=== PATIENT | female | born 1940 | race Caucasian/White ===

== ENCOUNTER 2021-03-07 13:23 | Emergency (ER) | payer MEDICARE, OTHER ==
--- NOTE | 2021-03-07 14:08 | EDM.PDOC ---
ED HPI GENERAL MEDICAL PROBLEM - General Chief Complaint: Lower Extremity Injury/Pain Stated Complaint: left knee pain, fall Time Seen by Provider: 03/07/21 13:49 Source of Information: Reports: Patient History Limitations: Reports: No Limitations - History of Present Illness INITIAL COMMENTS - FREE TEXT/NARRATIVE: Patient tripped at home. Tried to catch herself on arm of chair. Fell onto left knee and also hit her nose on the arm of the chair. Did have bleeding from the nose but that stopped prior to arrival to ER. Unable to bear much weight on left leg due to knee pain. Uses cane/walker at home for ambulation. Denies any acute change/new pain anywhere else. No LOC/new neck pain. Has ongoing discomfort in right knee and says they are planning to do an injection into that joint for treatment. Treatments SKI BASE TRIMMER: Reports: Other (see below) Other Treatments SKI BASE TRIMMER: ibuprofen 400 mg at 0800, voltatran gel left knee Pain Score (Numeric/FACES): 10 - Related Data Allergies Allergy/AdvReac Type Severity Reaction Status Date / Time Penicillins Allergy Cannot Verified 03/07/21 13:26 Remember Home Meds: Home Meds Alendronate Sodium 70 mg PO WEEKLY 10/26/20 [History] Calcium Carbonate [Calcium] 500 mg PO BID 10/26/20 [History] Diclofenac Sodium 75 mg PO Q12HR 10/26/20 [History] Levothyroxine 125 mcg PO DAILY 10/26/20 [History] Lutein/Minerals/Vit A,C & E [I-Renate] 2 tab PO DAILY 10/26/20 [History] Multivitamin 1 tab PO DAILY 10/26/20 [History] Omeprazole 20 mg PO DAILY 10/26/20 [History] lisinopriL [Lisinopril] 10 mg PO DAILY 10/26/20 [History] miSOPROStoL [Misoprostol] 100 mg PO DAILY 10/26/20 [History] oxyCODONE HCl/Acetaminophen [Oxycodone-Acetaminophen 5-325] 1 each PO Q6HR PRN #15 tablet 03/07/21 [Rx] Review of Systems - Review of Systems Review Of Systems: See Below Constitutional: Reports: No Symptoms Eyes: Denies: Pain, Vision Change Ears: Reports: No Symptoms Nose: Reports: Epistaxis Mouth/Throat: Reports: No Symptoms Respiratory: Reports: No Symptoms Cardiovascular: Reports: No Symptoms. Denies: Chest Pain GI/Abdominal: Reports: No Symptoms Musculoskeletal: Reports: Joint Swelling, Other (No acute change in chronic issues other then left knee pain) Skin: Denies: Wound Neurological: Reports: No Symptoms Psychiatric: Reports: No Symptoms ED EXAM, GENERAL - Physical Exam Exam: See Below Exam Limited By: No Limitations General Appearance: Alert, WD/WN, No Apparent Distress Eye Exam: Bilateral Eye: EOMI Ears: Hearing Grossly Normal Nose: Other (Bleeding stopped prior to arrival. Dried blood inside nares. ). No: Nasal Tenderness, Nasal Deformity, Nasal Swelling, Nasal Drainage Throat/Mouth: Normal Lips, Normal Voice, No Airway Compromise Head: Atraumatic, Normocephalic Neck: Normal Inspection, Supple, Non-Tender, Full Range of Motion Respiratory/Chest: No Respiratory Distress, Lungs Clear, Normal Breath Sounds, No Accessory Muscle Use, Chest Non-Tender Cardiovascular: Regular Rate, Rhythm, No Murmur GI/Abdominal: Soft, Non-Tender (Female) Exam: Deferred Rectal (Female) Exam: Deferred Back Exam: No: CVA Tenderness (L), CVA Tenderness (R), Muscle Spasm Extremities: Other (Tenderness/swelling left knee area. Color normal distal to injury. ) Neurological: Alert, Oriented Psychiatric: Normal Affect, Normal Mood Skin Exam: Warm, Dry, Intact Course - Vital Signs Last Recorded V/S: Last Vital Signs Temp 37.1 C 03/07/21 13:26 Pulse 79 03/07/21 13:26 Resp 16 03/07/21 13:26 BP 163/79 H 03/07/21 13:26 Pulse Ox 95 03/07/21 13:26 - Orders/Labs/Meds Orders: Active Orders 24 hr Category Date Time Status Knee 1V or 2V Lt [CR] Stat Exams 03/07/21 13:49 Taken Labs: Laboratory Tests 03/07/21 03/07/21 03/07/21 Range/Units 14:07 14:07 14:27 WBC 10.0 (4.0-10.2) K/uL RBC 4.39 (3.77-5.09) M/uL Hgb 13.2 (11.7-15.5) g/dL Hct 39.9 (34.0-46.0) % MCV 90.9 D (84.0-98.0) fL MCH 30.1 (28.2-33.3) pg MCHC 33.1 (31.7-36.0) g/dL RDW 13.1 (11.2-14.1) % Plt Count 213 (150-350) K/uL Neut % (Auto) 83.4 H (45.0-80.0) % Lymph % (Auto) 9.7 L (10.0-50.0) % [place] % (Auto) 6.2 (2.0-14.0) % Eos % (Auto) 0.4 (0.0-5.0) % Baso % (Auto) 0.3 (0.0-2.0) % Neut # (Auto) 8.35 H (1.40-7.00) K/uL Lymph # (Auto) 0.97 (0.50-3.50) K/uL [place] # (Auto) 0.62 (0.00-1.00) K/uL Eos # (Auto) 0.04 (0.00-0.50) K/uL Baso # (Auto) 0.03 (0.00-0.20) K/uL Sodium 139 (136-145) mmol/L Potassium 3.7 (3.5-5.1) mmol/L Chloride 108 H (98-107) mmol/L Carbon Dioxide 27.5 (21.0-32.0) mmol/L Anion Gap 7.2 (7-15) meq/L BUN 12 (7-18) mg/dL Creatinine 0.65 (0.51-1.17) mg/dL Est Cr Clr Drug Dosing 64.62 mL/min Estimated GFR (MDRD) > 60 mL/min Glucose 113 H (70-99) mg/dL Calcium 8.2 L (8.5-10.1) mg/dL Magnesium 2.0 (1.8-2.4) mg/dL Total Bilirubin 0.2 (0.2-1.0) mg/dL AST 20 (15-37) U/L ALT 27 (12-78) U/L Alkaline Phosphatase 96 (46-116) IU/L Total Protein 7.0 (6.4-8.2) g/dL Albumin 3.3 L (3.4-5.0) g/dL Specimen Type Urronivoid Urine Color Yellow Urine Appearance Clear Urine pH 6.0 (5.0-9.0) Ur Specific [place] 1.020 (1.005-1.030) Urine Protein Negative (NEGATIVE) mg/dL Urine Glucose (UA) Negative (NEGATIVE) mg/dL Urine Ketones Negative (NEGATIVE) mg/dL Urine Occult Blood Negative (NEGATIVE) Urine Nitrite Negative (NEGATIVE) Urine Bilirubin Negative (NEGATIVE) Urine Urobilinogen 0.2 (0.2-1.0) E.U./dL Ur Leukocyte Esterase Trace H (NEGATIVE) Urine RBC 0-5 /HPF Urine WBC 5-10 H /HPF Ur Epithelial Cells Few /LPF Urine Bacteria Few (NONE TO FEW) /HPF - Re-Assessments/Exams Free Text/Narrative Re-Assessment/Exam: 03/07/21 14:26 Xray of knee shows what appears to be a patellar fracture. Basic labs obtained. Call placed to [facility] to get consult with Ortho. 03/07/21 15:20 Able to get hold of extension professor [facility] Ortho provider, . He recommended placing patient in knee immobilizer and having her follow up next week with him at office. Does not appear to need surgery. Crutches not tolerated by patient but she does have a walker at home she can use to assist with ambulation. Instructions to wear immobilizer as much as possible until recheck given to patient with further follow up as advised by . CBC/Chem/UA overall unremarkable. Patient plans on taking ibuprofen PRN pain per usual plan. Also advised to consider Tylenol PRN. Will avoid narcotic Rx for now due to sedating effects/further fall risks. Departure - Departure Time of Disposition: 15:23 Disposition: Home, Self-Care 01 Condition: Good Clinical Impression: Epistaxis due to trauma Fall Qualifiers: Encounter type: initial encounter Qualified Code(s): W19.XXXA - Unspecified fall, initial encounter Left patella fracture Qualifiers: Encounter type: initial encounter Fracture type: closed Fracture morphology: unspecified fracture morphology Fracture alignment: nondisplaced Qualified Code(s): S82.002A - Unspecified fracture of left patella, initial encounter for closed fracture - Discharge Information *PRESCRIPTION DRUG MONITORING PROGRAM REVIEWED*: Not Applicable *COPY OF PRESCRIPTION DRUG MONITORING REPORT IN PATIENT TOI: Not Applicable Prescriptions: oxyCODONE HCl/Acetaminophen [Oxycodone-Acetaminophen 5-325] 1 each PO Q6HR PRN #15 tablet PRN Reason: Pain Instructions: How to Use a Knee Immobilizer, [id number] Referrals: PCP,Unknown [Primary Care Provider] - Forms: ED Department Discharge Additional Instructions: Follow up at [facility] with next week for recheck. Avoid weight bearing on that injured left leg. Use your walker to get around. Wear the leg immobilizer to stabilize/support/protect the left knee. OK to continue to as needed Motrin for pain. OK to take Tylenol. Make an appointment with one of the local clinics for your routine health recheck/physical/labs. Follow up otherwise as needed if you have problems. Sepsis Event Note (ED) - Evaluation Sepsis Screening Result: No Definite Risk - Focused Exam Vital Signs: Vital Signs Temp Pulse Resp BP Pulse Ox 03/07/21 13:26 37.1 C 79 16 163/79 H 95 - My Orders Last 24 Hours: My Active Orders 03/07/21 13:49 Knee 1V or 2V Lt [CR] Stat - Assessment/Plan Last 24 Hours: My Active Orders 03/07/21 13:49 Knee 1V or 2V Lt [CR] Stat
[2021-03-07 14:26] LABS: CHLORIDE,CL 108 mmol/L (98-107); SODIUM,NA 139 mmol/L (136-145)
[2021-03-07 14:28] LABS: ANION GAP 7.2 meq/L (7-15)
== END 2021-03-07 16:14 | disposition home or self-care (01) ==
LOC: LL.ED 13:23
DX: R04.0 Epistaxis (principal); Z88.0 Allergy status to penicillin; Z79.899 Other long term (current) drug therapy; W01.190A Fall on same level from slipping, tripping and stumbling with subsequent striking against furniture, initial encounter; Y92.009 Unspecified place in unspecified non-institutional (private) residence as the place of occurrence of the external cause
CPT/HCPCS: 36415; 73560-LT; 80053; 81001; 83735; 85025; 99283-25

== ENCOUNTER 2025-04-15 15:47 | Emergency (ER) | payer MEDICARE, OTHER ==
[2025-04-15] MEDS: Take Home: Acetaminophen/Codeine 300 MG/30 MG, 5 Tab Pack PO ONE (17:31)
== END 2025-04-15 18:00 | disposition home or self-care (01) ==
LOC: LL.ED 15:47
DX: S22.089A Unspecified fracture of T11-T12 vertebra, initial encounter for closed fracture (principal); Z88.0 Allergy status to penicillin; Z79.890 Hormone replacement therapy; Z79.899 Other long term (current) drug therapy; W19.XXXA Unspecified fall, initial encounter
CPT/HCPCS: 36415; 72072; 72100; 84443; 99283; A9270-GY